=== PATIENT | female | born 1985 | race Two or more races ===

== ENCOUNTER 2024-07-29 13:18 | Emergency (ER) | payer MEDICAID, SELFPAY ==
[2024-07-29 13:26] VITALS: BP 128/84; PULSE 80; RESP 18; TEMP 37.2; O2SAT 98; BMI 28.8
--- NOTE | 2024-07-29 13:31 | XR_ITS ---
Examination: PA lateral chest 2 views Technique: Upright PA lateral chest 2 views Exam date and time: July 29, 2024 1347 hrs. Indications: Coughing fever beginning 3 days ago. Findings: Suspicious for early right upper lobe pneumonia Normal heart size Left lung clear Impression: Suspicious for early right upper lobe pneumonia
--- NOTE | 2024-07-29 15:39 | PD.EDURI ---
Upper Respiratory Inf. RME/HPI General Chief Complaint: Dental/Oral/Throat Stated Complaint: Cough, sore throat Time Seen by Provider: 07/29/24 13:35 Source: patient Arrival date/time: 07/29/24 13:18 39-year-old female with no known medical history presents to the emergency room with a chief complaint of cough, congestion, intermittent fevers, sore throat x 1 week Mode of arrival: ambulatory Limitations: no limitations Related Data Previous Rx's ?Medication ?Instructions ?Recorded amoxicillin 875 mg-potassium 1 tab PO BID 7 days #14 tabs 07/29/24 clavulanate 125 mg tablet Allergies Allergy/AdvReac Type Severity Reaction Status Date / Time No Known Allergies Allergy Verified 04/25/23 08:33 Review of Systems Review of Systems Systems Reviewed: All systems reviewed, normal except as documented Constitutional Constitutional: Reports system reviewed and no additional complaints, except as documented, Denies fatigue, Reports fever(s), Denies headache(s) and Reports weakness Eyes Eyes: Reports system reviewed and no additional complaints, except as documented, Denies blurry vision and Denies change in vision ENT Ears, Nose, Mouth, and Throat: Reports system reviewed and no additional complaints, except as documented, Denies otalgia, Denies headache(s), Reports nasal congestion, Denies throat swelling and Denies vertigo Cardiovascular Cardiovascular: Reports system reviewed and no additional complaints, except as documented, Denies chest pain, Denies dyspnea and Denies dyspnea on exertion Respiratory Respiratory: Reports chest congestion, Reports cough, Denies dyspnea, Denies dyspnea on exertion and Denies wheezing Gastrointestinal Gastrointestinal: Reports system reviewed and no additional complaints, except as documented, Denies abdominal pain, Denies cramping, Denies nausea and Denies vomiting Genitourinary Genitourinary: Reports system reviewed and no additional complaints, except as documented Musculoskeletal Musculoskeletal: Reports system reviewed and no additional complaints, except as documented and Denies back pain Integumentary/Breasts Skin/Breast: Reports system reviewed and no additional complaints, except as documented and Denies wounds Neurologic Neurologic: Reports system reviewed and no additional complaints, except as documented, Denies confusion, Denies headache(s), Denies lack of coordination, Denies vertigo and Reports weakness Psychiatric Psychiatric: Reports system reviewed and no additional complaints, except as documented, Denies anxiety, Denies confusion, Denies depression, Denies paranoia, Denies suicidal ideation and Denies tactile hallucinations Endocrine Endocrine: Reports system reviewed and no additional complaints, except as documented and Denies fatigue Hematologic/Lymphatic Hematologic/Lymphatic: Reports system reviewed and no additional complaints, except as documented and Denies lymphadenopathy Allergic/Immunologic Allergic/Immunologic: Reports system reviewed and no additional complaints, except as documented, Denies throat swelling, Denies urticaria and Denies wheezing Past Medical History Social History SMOKING STATUS: Never smoker ED Exam General Limitations: Present no limitations General appearance: Present alert and in no apparent distress Head Head exam: Present atraumatic Eye Eye exam: Present normal appearance, PERRL and EOMI ENT ENT exam: Present normal exam, normal oropharynx and mucous membranes moist Neck Neck exam: Present normal inspection, full ROM and trachea midline Chest Chest inspection: Present normal inspection and symmetric chest wall rise Respiratory Respiratory exam: Present normal lung sounds bilaterally; Absent respiratory distress, wheezes, stridor, accessory muscle use or prolonged expiratory phase Cardiovascular Cardiovascular exam: Present regular rate, normal rhythm and normal heart sounds Abdominal Exam Abdominal exam: Present soft and normal bowel sounds Extremities Exam Extremities exam: Present normal inspection and full ROM Back Exam Back exam: Present normal inspection and full ROM Neurological Exam Neurological exam: Present alert, oriented X3 and CN II-XII intact Psychiatric Psychiatric exam: Present normal affect and normal mood Skin Skin exam: Present warm, dry, intact and normal color Course Quality Measures none Orders Category Date Time Status Bedside COVID-19 Antigen Test NOW Care 07/29/24 13:31 Completed Bedside Influenza A&B Antigen Test NOW Care 07/29/24 13:31 Completed XR chest 2V Stat Exams 07/29/24 13:31 Completed Vital Signs Vital signs: Vital Signs Temperature 98.9 F 07/29/24 13:26 Pulse Rate 80 07/29/24 13:26 Respiratory Rate 18 07/29/24 13:26 Blood Pressure 128/84 07/29/24 13:26 Pulse Oximetry (%) 98 07/29/24 13:26 Oxygen Delivery Method Room Air 07/29/24 13:26 Upper Respiratory Infection MDM Narrative MDM Narrative:: 39-year-old female with no known medical history presents to the emergency room with a chief complaint of cough, congestion, intermittent fevers, sore throat x 1 week Patient is afebrile, not tachycardic not tachypneic and O2 saturation is 98% on room air Physical examination shows clear bilateral lung sounds there is no wheezing or any abnormal breath sounds. COVID-19 influenza test were negative. Chest x-ray shows early right upper lobe pneumonia Antibiotics are sent to the patient's pharmacy patient was discharged and educated to return to the emergency room for any evidence of worsening signs or symptoms Patient data External records reviewed:: [facility] previous records Clinical information provided by:: patient Social determinants that could affect healthcare access:: none Patient has the following chronic illnesses:: No chronic illness How is presenting disease/condition affected by chronic disease/condition?: no chronic disease Evaluation data The following diagnostics were reviewed and interpreted by me:: lab results and radiology exam(s) Lab and/or radiology exams considered but not ordered:: Labs and radiology exams considered and ordered Interpretation Summary: Chest [id number]: Suspicious for early right upper lobe pneumonia Normal heart size Left lung clear Impression: Suspicious for early right upper lobe pneumonia Medications / Prescriptions Medications or Prescriptions considered but not ordered:: No medication given Medication administrations:: No medication given Consultations Consultation(s) initiated? (list below): No Diagnosis Upper Respiratory Differential Diagnosis: upper respiratory infection, viral infection, bronchitis, influenza, pharyngitis and other (Community-acquired pneumonia) Most likely diagnosis given after review of the tests above:: Community-acquired pneumonia Admission Indicated Admission indicated?: not indicated Admission Request Was there a request for admission?: No Disposition Plan Disposition Plan: Discharge Discharge Attestation Discharge Attestation: The patient and all family members were given an opportunity to ask questions and understood the discharge instructions. Discharge instructions specifically effects, indications for sooner follow up or return to the emergency department, and the expected course of current diagnosis. Patient condition: Stable Discharge Plan Plan Patient Disposition: HOME (Self Care) Disposition Comment: Stable Prescriptions/Referrals Prescriptions/Med Rec: New amoxicillin-pot clavulanate 875-125 mg tablet 1 tab PO BID 7 Days Qty: 14 0RF Problem List Clinical Impression: Community acquired pneumonia Patient/Caregiver Discharge Instructions Education Materials: What Is Pneumonia?, Treating Pneumonia, ED Pneumonia (Adult) Additional Instructions: Marla un seguimiento con wills proveedor de atenci?n primaria en las pr?ximas 24 a 48 horas. Se completaron las radiograf?as y muestran neumon?a temprana. Los antibi?ticos se env?an a wills farmacia por favor rec?jalos y t?melos kalia se indica. Si hay evidencia de signos o s?ntomas que empeoran, regrese a la morgan de emergencias de inmediato. Print Language: [place] Stand Alone Forms: Rody Award Info., Work/School Release, Patient Portal Info Letter PA/EMPLOYEE BENEFITS ATTORNEY Supervising Physician PA/EMPLOYEE BENEFITS ATTORNEY Supervising Physician: Dr. Lobo
== END 2024-07-29 16:10 | disposition home or self-care (01) ==
LOC: SERX 16:22
PROVIDERS: Emergency Provider Emergency Medicine
DX: J18.9 Pneumonia, unspecified organism (principal)
CPT/HCPCS: 71046; 87400; 87811; 99283

== ENCOUNTER 2024-08-24 17:58 | Emergency (ER) | payer MEDICAID, SELFPAY ==
[2024-08-24 18:54] VITALS: BP 119/78; PULSE 78; RESP 20; TEMP 37.2; O2SAT 98
--- NOTE | 2024-08-24 19:06 | XR_ITS ---
Examination: PA lateral chest 2 views TECHNIQUE: Upright PA lateral chest 2 views Examination time: August 24, 2024 1944 hours INDICATIONS: Coughing beginning one month ago. FINDINGS: Normal heart size. Lungs are clear. Mild osteopenia. IMPRESSION: No active disease
--- NOTE | 2024-08-24 19:34 | EDNOTE_ITS ---
ED SOB =RME/HPI General Chief Complaint: Shortness of Breath/Dyspnea Stated Complaint: COUGH, SOB, PAIN WITH BREATHING Time Seen by Provider: 08/24/24 19:05 Arrival date/time: 08/24/24 17:58 39F with no significant PMH presents to ED with 4 weeks of cough and intermittent SOB and CP when coughing. Patient came to ED upon initial presentation and was diagnosed with PNA. Patient took all prescribed Augmentin and hasn't felt any better. Limitations: no limitations Related Data Allergies Allergy/AdvReac Type Severity Reaction Status Date / Time No Known Allergies Allergy Verified 08/24/24 17:59 Review of Systems Review of Systems Systems Reviewed: All systems reviewed, normal except as documented Constitutional Constitutional: Reports system reviewed and no additional complaints, except as documented, Denies fever(s) and Denies headache(s) ENT Ears, Nose, Mouth, and Throat: Denies disequilibrium and Denies headache(s) Cardiovascular Cardiovascular: Reports system reviewed and no additional complaints, except as documented, Reports as per HPI, Reports chest pain and Reports dyspnea Respiratory Respiratory: Reports system reviewed and no additional complaints, except as documented, Reports as per HPI, Reports cough and Reports dyspnea Gastrointestinal Gastrointestinal: Reports system reviewed and no additional complaints, except as documented, Denies abdominal pain, Denies nausea and Denies vomiting Neurologic Neurologic: Reports system reviewed and no additional complaints, except as documented, Denies confusion, Denies disequilibrium and Denies headache(s) Psychiatric Psychiatric: Denies confusion Past Medical History Social History SMOKING STATUS: Never smoker ED Exam General Limitations: Present no limitations General appearance: Present alert and in no apparent distress Head Head exam: Present atraumatic Eye Eye exam: Present normal appearance, PERRL and EOMI ENT ENT exam: Present normal exam, normal oropharynx and mucous membranes moist Neck Neck exam: Present normal inspection, full ROM and trachea midline Chest Chest inspection: Present normal inspection and symmetric chest wall rise Respiratory Respiratory exam: Present normal lung sounds bilaterally Cardiovascular Cardiovascular exam: Present regular rate, normal rhythm and normal heart sounds Abdominal Exam Abdominal exam: Present soft and normal bowel sounds Extremities Exam Extremities exam: Present normal inspection and full ROM Back Exam Back exam: Present normal inspection and full ROM Neurological Exam Neurological exam: Present alert, oriented X3 and CN II-XII intact Psychiatric Psychiatric exam: Present normal affect and normal mood Skin Skin exam: Present warm, dry, intact and normal color Course Quality Measures none Orders Category Date Time Status Bedside Influenza A&B Antigen Test NOW Care 08/24/24 18:26 Completed XR chest 2V Stat Exams 08/24/24 19:06 Completed Dexamethasone Inj [Decadron Inj] Med 08/24/24 22:17 Discontinued 10 mg PO X1 ONE Vital Signs Vital signs: Vital Signs Temperature 98.9 F 08/24/24 18:54 Pulse Rate 78 08/24/24 18:54 Respiratory Rate 20 08/24/24 18:54 Blood Pressure 119/78 08/24/24 18:54 Pulse Oximetry (%) 98 08/24/24 18:54 Oxygen Delivery Method Room Air 08/24/24 18:54 O2 at 98% on RA and WNLs Shortness of Breath / Dyspnea MDM Narrative MDM Narrative:: 39F with no significant PMH presents to ED with 4 weeks of cough and intermittent SOB and CP when coughing. Patient came to ED upon initial pre sentation and was diagnosed with PNA. Patient took all prescribed Augmentin and hasn't felt any better. Physical exam reveals clear lungs. RRR. Normal WOB. Patient is afebrile, calm, and alert. CXR clear. Steroids improved symptoms. Likely pleurisy. Patient data External records reviewed:: [facility] previous records Clinical information provided by:: patient Social determinants that could affect healthcare access:: none Patient has the following chronic illnesses:: none How is presenting disease/condition affected by chronic disease/condition?: no chronic disease Evaluation data The following diagnostics were reviewed and interpreted by me:: radiology exam(s) Lab and/or radiology exams considered but not ordered:: ordered Interpretation Summary: above Medications / Prescriptions Medications or Prescriptions considered but not ordered:: ordered Medication administrations:: Medication Administration History Discontinued Medications Dexamethasone Sodium Phosphate (Dexamethasone Sod Phos Inj 10 Mg/Ml Vial) 10 mg PO X1 ONE Stop: 08/24/24 22:18 Last Admin: 08/24/24 22:32 Dose: 10 mg Documented By: CVL above Consultations Consultation(s) initiated? (list below): No Diagnosis Shortness of Breath Differential Diagnosis: acute exacerbation of chronic obstructive airways disease, congestive heart failure, community acquired pneumonia, asthma with exacerbation, pulmonary embolism and other (pleurisy) Most likely diagnosis given after review of the tests above:: pleurisy Admission Indicated Admission indicated?: not indicated Admission Request Was there a request for admission?: No Disposition Plan Disposition Plan: Discharge Discharge Attestation Discharge Attestation: The patient and all family members were given an opportunity to ask questions and understood the discharge instructions. Discharge instructions specifically effects, indications for sooner follow up or return to the emergency department, and the expected course of current diagnosis. Patient condition: Stable Discharge Plan Plan Patient Disposition: HOME (Self Care) Disposition Comment: Stable Prescriptions/Referrals Referrals: No Primary/Family,Physician [Primary Care Provider] - In 1 week Problem List Clinical Impression: Pleurisy Patient/Caregiver Discharge Instructions Education Materials: ED Pleurisy Additional Instructions: Please follow-up with PCP within 24-48 hours and return immediately if symptoms worsen. Ibuprofen/Tylenol can be used simultaneously for greater fever/pain control. Print Language: Arabic Stand Alone Forms: Patient Portal Info Letter SCOTT/SHEREE Supervising Physician MAIRA Supervising Physician: Dr. Menjivar
[2024-08-24] MEDS: DEXAMETHASONE SOD PHOS INJ 10 MG/ML VIAL PO (22:32)
[2024-08-24 23:47] VITALS: BP 125/83; PULSE 71; RESP 18; TEMP 37.2; O2SAT 99
== END 2024-08-25 00:01 | disposition home or self-care (01) ==
PROVIDERS: Emergency Provider Emergency Medicine
DX: R09.1 Pleurisy (principal)
CPT/HCPCS: 71046; 87400; 99283; J1100